=== PATIENT | male | born 1950 | race Caucasian/White ===

== ENCOUNTER 2017-10-30 03:57 | Emergency (ER) | payer MEDICARE ==
[2017-10-30] MEDS ORDERED: fentaNYL PF VIAL 100 MCG/2 ML VIAL ×2 (04:54)
[2017-10-30] MEDS ORDERED: IBUPROFEN 600 MG TABLET. PO ×2 (04:54)
[2017-10-30] MEDS: IBUPROFEN 600 MG TABLET. PO ×2 (05:00)
[2017-10-30] MEDS: CYCLOBENZAPRINE 10 MG TABLET. PO ×2 (05:17)
[2017-10-30] MEDS: ONDANSETRON ODT 4 MG TAB.RAPDIS. PO ×2 (05:17)
[2017-10-30] MEDS: fentaNYL PF VIAL 100 MCG/2 ML VIAL IM ×2 (05:17)
== END 2017-10-30 05:47 | disposition home or self-care (01) ==
LOC: ER 03:57
DX: S06.0X1A Concussion with loss of consciousness of 30 minutes or less, initial encounter (principal); S30.0XXA Contusion of lower back and pelvis, initial encounter; R07.89 Other chest pain; E78.00 Pure hypercholesterolemia, unspecified; I10 Essential (primary) hypertension; G89.29 Other chronic pain; Y04.0XXA Assault by unarmed brawl or fight, initial encounter; Y93.89 Activity, other specified; Y92.89 Other specified places as the place of occurrence of the external cause; Y99.8 Other external cause status
CPT/HCPCS: 70450; 71046; 72220; 96372; 99284-25; J3010; Q0162